=== PATIENT | female | born 1980 | race Hispanic/Latino ===

== ENCOUNTER 2020-01-28 19:02 | Emergency (ER) | payer BC, OTHER ==
[~2020-01-28] VITALS: Ht 160 cm; Wt 60.3 kg
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
[2020-01-28] MEDS ORDERED: CYCLOBENZAPRINE10 MG PO (20:19)
== END 2020-01-28 20:36 | disposition home or self-care (01) ==
LOC: FSED 19:50
DX: S13.4XXA Sprain of ligaments of cervical spine, initial encounter (principal); M25.512 Pain in left shoulder; M25.522 Pain in left elbow; V53.6XXA Passenger in pick-up truck or van injured in collision with car, pick-up truck or van in traffic accident, initial encounter; Y92.488 Other paved roadways as the place of occurrence of the external cause; J45.909 Unspecified asthma, uncomplicated
CPT/HCPCS: 99282